=== PATIENT | male | born 1985 | race Caucasian/White ===

== ENCOUNTER → 2017-01-06 | Outpatient (CLI) | payer OTHER ==
--- NOTE | 2017-01-06 14:34 | REP ---
MAXILLOFACIAL CT WITHOUT CONTRAST: HISTORY: Recurrent sinusitis. COMPARISON: 04/05/2012 The patient is status post bilateral partial ethmoidectomy and uncinectomy. Mucosal thickening is present in the sinuses. Mild mucosal thickening is present in the ethmoid sinuses. Minimal mucosal thickening is present in the maxillary, frontal and sphenoid sinuses. There is very minimal deviation of the nasal septum to the left anteriorly. The cribriform plate, medial will of the orbits and optic canals are intact. The carotid canals form a segment of the posterolateral will of the sphenoid sinus. Increased soft tissue density is present in the nasal passage consistent with polyps. IMPRESSION: 1. Postoperative change as described above. 2. Sinus mucosal thickening as described above. 3. There are soft tissue densities in the nasal passage consistent with polyps. Signed by Obdulio Romero MD 01/06/2017 02:39 P
== END ==
LOC: M RAD 13:22
PROVIDERS: ATTEND Allergy & Immunology
DX: J01.91 Acute recurrent sinusitis, unspecified (principal)